=== PATIENT | female | born 1955 | race Caucasian/White ===

== ENCOUNTER 2018-03-07 10:52 | Emergency (ER) | payer OTHER ==
[~2018-03-07] VITALS: Ht 157.5 cm; Wt 68.0 kg
--- NOTE | 2018-03-07 12:09 | ED PSYCHIATRIC COMPLAINT ---
See Addendum History of Present Illness General Chief Complaint: ETOH/Drug Related Complaint Stated Complaint: FOR HIGHWATCH STATES TO SEE DR BUNDY Source: patient, old records Exam Limitations: no limitations Vital Signs & Intake/Output Vital Signs & Intake/Output Vital Signs Date Time Temp Pulse Resp B/P B/P Pulse O2 O2 Flow FiO2 Mean Ox Delivery Rate 03/07 1912 98.1 86 16 82/52 03/07 1707 128/83 03/07 1702 98.4 88 18 92/55 03/07 1624 98.3 85 18 128/83 95 03/07 1510 98.4 95 18 123/67 93 Room Air 03/07 1328 98.0 84 18 98/55 97 Room Air 03/07 1300 98.0 84 18 98/55 03/07 1149 Room Air 03/07 1109 98.7 100 140/90 96 Room Air Allergies Coded Allergies: cephalexin (From KEFLEX) (HIVES 03/07/18) Triage Note: PT HERE FOR DETOX AND HIGHWATCH. STATES LAST DRINK 0900 TODAY. DENIES SEIZURE IN PAST WITH DETOX BUT STATES SHE HAS ALWAYS TAKEN ATIVAN. DENIES SI/HI. PT APPEARS TREMULOUS IN TRIAGE Triage Nurses Notes Reviewed? yes Onset: Evening Duration: hour(s):, constant, continues in ED Timing: recent history Severity: moderate, severe Associated Symptoms: anxiety, impaired concentration LMP (ages 10-50): post menopausal : No Patient currently breastfeeds: No HPI: 1 day prior to admission patient decided to stop drinking and has been having tremors. She requests detox at [facility]. She denies fever chills nausea vomiting diarrhea abdominal pain chest pain cough shortness breath headache dysuria rash bleeding suicidal ideation homicidal ideation hallucination. (Russel Garcia MD) Past History Travel History Traveled to [place] past 21 day No Medical History Any Pertinent Medical History? see below for history Gastrointestinal: PANCREATITIS Psychiatric: anxiety Surgical History Surgical History: non-contributory Psychosocial History What is your primary language Turkish Tobacco Use: Current Daily Use Daily Tobacco Use Amount/Type: => 5 Cigarettes daily ETOH Use: alcoholic Illicit Drug Use: denies illicit drug use Family History Hx Contributory? No (Russel Garcia MD) Review of Systems Review of Systems Constitutional: Reports: no symptoms. EENTM: Reports: no symptoms. Respiratory: Reports: no symptoms. Cardiovascular: Reports: no symptoms. GI: Reports: no symptoms. Genitourinary: Reports: no symptoms. Musculoskeletal: Reports: no symptoms. Skin: Reports: no symptoms. Neurological/Psychological: Reports: see HPI, anxiety, confusion, emotional problems. Hematologic/Endocrine: Reports: no symptoms. Immunologic/Allergic: Reports: no symptoms. All Other Systems: Reviewed and Negative (Russel Garcia MD) Physical Exam Physical Exam General Appearance: well developed/nourished, alert, awake, anxious, moderate distress, thin, tremulous Head: atraumatic, normal appearance Eyes: Bilateral: normal appearance, PERRL, EOMI. 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 patient not suicidal (Russel Garcia MD) Progress Differential Diagnosis: drug intoxication, drug overdose, drug withdrawal, electrolyte abnormality, hypoglycemia Plan of Care: Orders Procedure Date/time Status Regular Diet 03/07 D Active CIWA 03/07 1151 Active URINE DRUG SCREEN FOR ER ONLY 03/07 1151 Complete PROTHROMBIN TIME 03/07 1151 Complete MAGNESIUM 03/07 1151 Complete LIPASE 03/07 1151 Complete ETHANOL 03/07 1151 Complete COMPREHENSIVE METABOLIC PANEL 03/07 1151 Complete CBC WITHOUT DIFFERENTIAL 03/07 1151 Complete Current Medications Sig/Devika Start time Last Medication Dose Stop Time Status Admin Clonidine 0.1 MG TID 03/07 1400 UNVr 03/07 (Catapres) 1707 Gabapentin 300 MG TID 03/07 1400 UNVr 03/07 (Neurontin) 1707 Laboratory Tests 03/07/18 1240: Urine Opiates Screen 204, Methadone Screen 65, Barbiturate Screen < 60, Ur Phencyclidine Scrn < 6.00, Amphetamines Screen < 100, U Benzodiazepines Scrn < 85, Urine Cocaine Screen < 50, Urine Cannabis Screen < 5.00 03/07/18 1216: Anion Gap 12, Estimated GFR > 60, BUN/Creatinine Ratio 16.7, Glucose 100 H, Calcium 9.9, Magnesium 1.9, Total Bilirubin 0.8, AST 429 H, ALT 318 H, Alkaline Phosphatase 143 H, Total Protein 7.3, Albumin 4.4, Globulin 2.9, Albumin/Globulin Ratio 1.5, Lipase 68, PT 12.6 H, INR 1.15, CBC w Diff NO MAN DIFF REQ, RBC 4.22, MCV 94.7, MCH 31.9 H, MCHC 33.7, RDW 14.9 H, MPV 6.2 L, Gran % 60.4, Lymphocytes % 21.7, Monocytes % 15.8 H, Eosinophils % 1.7, Basophils % 0.4, Absolute Granulocytes 3.8, Absolute Lymphocytes 1.4, Absolute Monocytes 1.0 H, Absolute Eosinophils 0.1, Absolute Basophils 0, Serum Alcohol < 10.0 Hand-Off Endorsed To: Zackery Jordan MD Endorsed Time: 1900 Pending: other ([facility], [facility]?) (Russel Garcia MD) Hand-Off Endorsed To: Noah Pressley MD Endorsed Time: 0700 Pending: other (Zackery Jordan MD) Departure Departure Disposition: STILL A PATIENT Condition: Stable Clinical Impression Primary Impression: Alcohol dependence with withdrawal Referrals: Omar OLSEN,Elvin Oakes (PCP/Family) Departure Forms: Customer Survey General Discharge Information (Russel Garcia MD)
[2018-03-07 12:28] LABS: ABSOLUTE BASOPHIL COUNT 0 /CUMM (0.0-0.2); ABSOLUTE EOSINOPHIL COUNT 0.1 /CUMM (0.0-0.7); ABSOLUTE GRANULOCYTE CT 3.8 /CUMM (1.4-6.5); ABSOLUTE LYMPH COUNT 1.4 /CUMM (1.2-3.4); BASOPHIL % 0.4 % (0.0-2.0); EOSINOPHIL % 1.7 % (0-5); GRANULOCYTE % 60.4 % (42.2-75.2); HEMATOCRIT 39.9 % (37-47); MEAN CORPUSCULAR HGB 31.9 PG (27.0-31.0); MEAN CORPUSCULAR HGB CONC 33.7 G/DL (33.0-37.0); MEAN CORPUSCULAR VOLUME 94.7 FL (81.0-99.0); MEAN PLATELET VOLUME 6.2 FL (7.4-10.4); PLATELET COUNT 275 /CUMM (130-400); RBC DISTRIBUTION WIDTH 14.9 % (11.5-14.5); RED BLOOD CELL CT 4.22 /CUMM (4.20-5.40); WHITE BLOOD CELL COUNT 6.3 /CUMM (4.8-10.8)
[2018-03-07 12:41] LABS: PT 12.6 SEC (9.4-12.5)
[2018-03-08 06:03] VITALS: BP 97/67
== END 2018-03-08 07:59 ==
LOC: ERH 10:52
PROVIDERS: Emergency Medicine
DX: F10.239 Alcohol dependence with withdrawal, unspecified (principal); F41.9 Anxiety disorder, unspecified
CPT/HCPCS: 80307; G0480